=== PATIENT | female | born 1955 | race Hispanic/Latino ===

== ENCOUNTER 2021-10-01 12:10 | Emergency (ER) | payer SELFPAY ==
[~2021-10-01] VITALS: Ht 154.9 cm; Wt 61.2 kg
[2021-10-01] MEDS ORDERED: AZITHROMYCIN250 MG PO (12:44)
[2021-10-01] MEDS ORDERED: PROVENTIL HFA6.7 GM INH (12:44)
[2021-10-01] MEDS ORDERED: LORATADINE10 MG PO (12:44)
[2021-10-01] MEDS ORDERED: CEFTRIAXONE 1 GM VIAL IM ONE (12:45)
== END 2021-10-01 13:10 | disposition home or self-care (01) ==
LOC: FSED 12:33
DX: R05.9 Cough, unspecified (principal); J40 Bronchitis, not specified as acute or chronic; R50.9 Fever, unspecified; J06.9 Acute upper respiratory infection, unspecified; I10 Essential (primary) hypertension; Z86.73 Personal history of transient ischemic attack (TIA), and cerebral infarction without residual deficits
CPT/HCPCS: 71046; 87400; 99283